=== PATIENT | male | born 1990 | race Caucasian/White ===

== ENCOUNTER → 2017-01-10 | Outpatient (CLI) | payer SELFPAY ==
[~2017-01-10] MED LIST: BACT800T5 PO; CLAR10CA3 PO; COLA100C5 PO; GLUC500C5 PO; SYMB16INH INH
[2017-01-10 13:26] LABS: BASO # 0.1 K/mm3 (0.0-0.2); EOS # 0.3 K/mm3 (0.0-0.50); EOS % 4.9 % (0.0-3.0); LARGE UNSTAINED CELL # 0.1 K/mm3 (0.0-0.4); LARGE UNSTAINED CELL % 1.8 % (0.0-4.0); LYMPH # 2.5 K/mm3 (1.5-6.5); LYMPH % 36.9 % (24.0-44.0); MEAN CORPUSCULAR HEMOGLOBIN 30.8 pg (27.0-33.0); MEAN CORPUSCULAR HGB CONC 34.9 g/dl (32.0-36.5); MEAN CORPUSCULAR VOLUME 88.2 fl (80.0-96.0); MONO # 0.3 K/mm3 (0.0-0.8); NEUTROPHILS # 3.2 K/mm3 (1.8-7.7); NEUTROPHILS % 50.4 % (36.0-66.0); PLATELET COUNT, AUTOMATED 187 k/mm3 (150-450); RED CELL DISTRIBUTION WIDTH 12.6 % (11.5-14.5); WHITE BLOOD COUNT 6.4 K/mm3 (4.0-10.0)
[2017-01-10 14:36] LABS: ALBUMIN 4.1 GM/DL (3.2-5.2); ALBUMIN/GLOBULIN RATIO 1.32 (1.00-1.93); ALKALINE PHOSPHATASE 67 U/L (45-117); ALT/SGPT 20 U/L (12-78); ANION GAP 6 MEQ/L (8-16); AST/SGOT 10 U/L (15-37); BILIRUBIN,TOTAL 0.7 MG/DL (0.2-1.0); BLOOD UREA NITROGEN 11 MG/DL (7-18); CARBON DIOXIDE LEVEL 28 MEQ/L (21-32); CHLORIDE LEVEL 107 MEQ/L (98-107); CREATININE FOR GFR 1.28 MG/DL (0.70-1.30); GLOMERULAR FILTRATION RATE > 60.0 (>60); GLUCOSE, FASTING 91 MG/DL (70-105); POTASSIUM SERUM 4.1 MEQ/L (3.5-5.1); SODIUM LEVEL 141 MEQ/L (136-145); TOTAL PROTEIN 7.2 GM/DL (6.4-8.2)
== END ==
LOC: M LAB 12:13
PROVIDERS: ATTEND Nurse Practitioner Family
DX: Z02.9 Encounter for administrative examinations, unspecified (principal)

== ENCOUNTER → 2017-01-17 | Outpatient (REF) | payer SELFPAY | LOC: M LAB REF 14:40 | PROVIDERS: ATTEND Nurse Practitioner Family | DX: Z02.9 Encounter for administrative examinations, unspecified (principal) ==

== ENCOUNTER 2017-01-27 20:52 | Emergency (ER) | payer OTHER, SELFPAY ==
[~2017-01-27] VITALS: Ht 177.8 cm; Wt 72.7 kg
[2017-01-27 20:53] VITALS: BP 148/91
[2017-01-27] MEDS ORDERED: COLA100C5 PO (21:03)
[2017-01-27] MEDS ORDERED: GLUC500C5 PO (21:03)
[2017-01-27] MEDS ORDERED: SYMB16INH INH (21:03)
[2017-01-27] MEDS ORDERED: CLAR10CA3 PO (21:03)
[2017-01-27] MEDS ORDERED: NORCO, ANEXSIA 5/325MG TABLET (HYDROcodone/ACETAMINOPHEN) PO ONE (21:15)
[2017-01-27] MEDS ORDERED: BACTRIM 160MG/800MG DS TAB PO ONE (21:15)
[2017-01-27] MEDS ORDERED: BACT800T5 PO (21:24)
== END 2017-01-27 21:59 | disposition home or self-care (01) ==
LOC: M ED 20:52
DX: M79.671 Pain in right foot (principal); F99 Mental disorder, not otherwise specified; F19.10 Other psychoactive substance abuse, uncomplicated; Z79.899 Other long term (current) drug therapy; F17.210 Nicotine dependence, cigarettes, uncomplicated